=== PATIENT | male | born 1990 | race American Indian/Alaskan Native ===

== ENCOUNTER 2021-06-09 12:22 | Emergency (ER) | payer SELFPAY ==
--- NOTE | 2021-06-09 12:57 | Emergency Department Report ---
ED General Adult HPI - General Chief complaint: GI Bleed Stated complaint: ABD PAINS Time Seen by Provider: 06/09/21 12:42 Source: patient Mode of arrival: Ambulatory Limitations: No Limitations - History of Present Illness Initial comments: 31-year-old -[place] male patient presents with complaints of bleeding from rectum today. He reports, after having a bowel movement today he wiped and noticed a great deal of blood on the toilet paper. He denies any significant blood in his stools or abdominal pain. He does report mild rectal pain and itching that he rates at a 2/10 in severity. Patient states 1 week ago he was diagnosed with colitis at [facility] and prescribed antibiotics. He states since being on the antibiotics he has had some difficulty with defecation and has been straining. No prior history of hemorrhoids per patient. He denies any fever/chills/sweats, urinary symptoms, or back pain/injuries. - Related Data Previous Rx's Medication Instructions Recorded Last Taken Type Hydrocortisone [Anucort-HC SUPPOS] 25 mg RC BID PRN 7 Days #14 06/09/21 Unknown Rx supp.rect Allergies Allergy/AdvReac Type Severity Reaction Status Date / Time shellfish derived Allergy Vomiting Verified 06/09/21 12:31 ED Review of Systems ROS: Stated complaint: ABD PAINS Other details as noted in HPI Constitutional: denies: chills, diaphoresis, fever, malaise Gastrointestinal: as per HPI, constipation. denies: abdominal pain, nausea, vomiting, diarrhea, melena Genitourinary: denies: urgency, dysuria, frequency, hematuria Musculoskeletal: denies: back pain Skin: denies: rash, lesions ED Past Medical Hx - Medications Home Medications: Home Medications Medication Instructions Recorded Confirmed Last Taken Type Hydrocortisone [Anucort-HC SUPPOS] 25 mg RC BID PRN 7 Days #14 06/09/21 Unknown Rx supp.rect ED Physical Exam - General Limitations: No Limitations General appearance: alert, in no apparent distress, obese - Head Head exam: Present: atraumatic, normocephalic - Eye Eye exam: Present: normal appearance - Respiratory Respiratory exam: Present: normal lung sounds bilaterally. Absent: respiratory distress - Cardiovascular Cardiovascular Exam: Present: regular rate - GI/Abdominal GI/Abdominal exam: Present: soft. Absent: distended, tenderness, guarding, rebound, rigid - Rectal Rectal exam: Present: hemorrhoids (internal ). Absent: black stool - Neurological Exam Neurological exam: Present: alert, oriented X3 - Psychiatric Psychiatric exam: Present: normal affect - Skin Skin exam: Present: warm, dry, intact, normal color. Absent: rash ED Course Vital Signs 06/09/21 12:30 Temperature 98.2 F Pulse Rate 80 Respiratory 18 Rate Blood Pressure 128/67 O2 Sat by Pulse 97 Oximetry ED Medical Decision Making - Medical Decision Making 31-year-old -[place] male patient presents with complaints of bleeding from rectum today. He reports, after having a bowel movement today he wiped and noticed a great deal of blood on the toilet paper. He denies any significant blood in his stools or abdominal pain. He does report mild rectal pain and itching that he rates at a 2/10 in severity. Patient states 1 week ago he was diagnosed with colitis at [facility] and prescribed antibiotics. He states since being on the antibiotics he has had some difficulty with defecation and has been straining. No prior history of hemorrhoids per patient. He denies any fever/chills/sweats, urinary symptoms, or back pain/injuries. Internal hemorrhoids noted on rectal exam. Will treat symptomatically with topical meds. Recommend follow-up with GI, referral provided. He is well-appearing, his vitals are within normal limits, he is stable for discharge home. Discussed in detail signs and symptoms that should prompt immediate return to the emergency department with patient who verbalizes understanding. Critical care attestation.: If time is entered above; I have spent that time in minutes in the direct care of this critically ill patient, excluding procedure time. ED Disposition Clinical Impression: Internal hemorrhoid, bleeding Disposition: HOME / SELF CARE / HOMELESS Is pt being admited?: No Condition: Stable Instructions: Hemorrhoids Prescriptions: Hydrocortisone [Anucort-HC SUPPOS] 25 mg RC BID PRN 7 Days #14 supp.rect PRN Reason: hemorrhoid pain Referrals: [facility] [Provider Group] - 3-5 Days
[2021-06-09 14:44] VITALS: BP 144/77
== END 2021-06-09 14:41 | disposition home or self-care (01) ==
LOC: ED 12:22
DX: K64.8 Other hemorrhoids (principal); Z91.013 Allergy to seafood; Z79.899 Other long term (current) drug therapy
CPT/HCPCS: 99282

== ENCOUNTER 2022-05-13 01:10 | Emergency (ER) | payer OTHER ==
[2022-05-13] MEDS ORDERED: IPRATROPIUM 0.02% NEBU 2.5 ML IH ONE ×2 (01:38→01:40)
[2022-05-13] MEDS ORDERED: ALBUTEROL 2.5 MG/3 ML NEBU IH ONE ×2 (01:38→01:40)
[2022-05-13] MEDS ORDERED: KETOROLAC 30 MG/1 ML INJ IV ONE (01:45)
[2022-05-13] MEDS ORDERED: methylPREDNISolone Sod Succinate 125 MG/2 ML INJ IV ONE (01:45)
[2022-05-13] MEDS ORDERED: ACETAMINOPHEN 500 MG TAB PO ONE (01:45)
[2022-05-13] MEDS ORDERED: PANTOPRAZOLE 40 MG INJ IV ONE (01:45)
--- NOTE | 2022-05-13 01:47 | Emergency Department Report ---
ED General Adult HPI - General Chief complaint: Adult Asthma Stated complaint: ASTHMA Time Seen by Provider: 05/13/22 01:39 Source: patient Mode of arrival: Ambulatory Limitations: No Limitations - History of Present Illness Initial comments: The patient was evaluated in the emergency department for symptoms described in the history of present illness. He/she was evaluated in the context of the global COVID-19 pandemic, which necessitated consideration that the patient might be at risk for infection with the virus that causes COVID-19. Institution al protocols and algorithms that pertain to the evaluation of patients at risk for COVID-19 are in a state of rapid change based on information released by regulatory bodies including the CDC and federal and state organizations. These policies and algorithms were followed during the patient's care in the emergency department. Please note that these policies, procedures and recommendations changed on a rapid basis. Primary care doctor: Kwan neff The patient is a 32-year-old gentleman with a history of asthma and reactive airways disease, who denies a history of intubation, with a body mass index of 38.7, and possible obstructive sleep apnea, who is scheduled for a sleep study in May. He presents to the ER today with a complaint of 3 days of cough, chest wall pain, shortness of breath and wheezing. He is COVID-19 vaccinated. He denies loss of taste and smell. He denies vomiting and diarrhea. Chest wall pain increases with palpation and coughing. He felt improved in the emergency room after albuterol, Atrovent, steroids, and appropriate pain medications. -: Gradual, days(s) Location: chest Quality: aching Consistency: intermittent Improves with: rest Worsens with: movement, other (Palpation, cough) - Related Data Previous Rx's Medication Instructions Recorded Last Taken Type Hydrocortisone [Anucort-HC SUPPOS] 25 mg RC BID PRN 7 Days #14 06/09/21 Unknown Rx supp.rect Acetaminophen [Non-Aspirin Extra 500 mg PO Q6HR PRN #30 tablet 05/13/22 Unknown Rx Strength] Albuterol Sulfate [Albuterol 0.63% 0.63 mg IH Q4HR PRN #2 ml 05/13/22 Unknown Rx NEBS] Albuterol Sulfate [Proair 90 mcg IH Q4HR PRN #2 aer.pow.ba 05/13/22 Unknown Rx Respiclick] Ibuprofen [Motrin] 600 mg PO Q8H PRN #30 tablet 05/13/22 Unknown Rx predniSONE [Deltasone] 40 mg PO QDAY #8 tab 05/13/22 Unknown Rx Allergies Allergy/AdvReac Type Severity Reaction Status Date / Time shellfish derived Allergy Vomiting Verified 06/09/21 12:31 ED Review of Systems ROS: Stated complaint: ASTHMA Other details as noted in HPI Comment: All other systems reviewed and negative Constitutional: weakness. denies: fever ENT: congestion Respiratory: cough, shortness of breath, wheezing Cardiovascular: chest pain (Chest wall pain) ED Past Medical Hx - Past Medical History Previous Medical History?: Yes Hx Asthma: Yes Additional medical history: heart murmur; pericarditis - Surgical History Past Surgical History?: Yes - Social History Smoking Status: Never Smoker Substance Use Type: None - Medications Home Medications: Home Medications Medication Instructions Recorded Confirmed Last Taken Type Hydrocortisone [Anucort-HC SUPPOS] 25 mg RC BID PRN 7 Days #14 06/09/21 Unknown Rx supp.rect Acetaminophen [Non-Aspirin Extra 500 mg PO Q6HR PRN #30 tablet 05/13/22 Unknown Rx Strength] Albuterol Sulfate [Albuterol 0.63% 0.63 mg IH Q4HR PRN #2 ml 05/13/22 Unknown Rx NEBS] Albuterol Sulfate [Proair 90 mcg IH Q4HR PRN #2 aer.pow.ba 05/13/22 Unknown Rx Respiclick] Ibuprofen [Motrin] 600 mg PO Q8H PRN #30 tablet 05/13/22 Unknown Rx predniSONE [Deltasone] 40 mg PO QDAY #8 tab 05/13/22 Unknown Rx ED Physical Exam - General Limitations: No Limitations General appearance: alert, in no apparent distress, obese - Head Head exam: Present: atraumatic, normocephalic - Eye Eye exam: Present: normal appearance, EOMI. Absent: nystagmus - ENT ENT exam: Present: normal exam, normal orophraynx, mucous membranes moist, normal external ear exam - Neck Neck exam: Present: normal inspection, full ROM. Absent: tenderness, meni ngismus - Respiratory Respiratory exam: Present: chest wall tenderness, decreased breath sounds. Absent: wheezes, rales, rhonchi, stridor - Cardiovascular Cardiovascular Exam: Present: regular rate, normal rhythm, normal heart sounds. Absent: bradycardia, tachycardia, irregular rhythm, systolic murmur, diastolic murmur, rubs, gallop - GI/Abdominal GI/Abdominal exam: Present: soft. Absent: distended, tenderness, guarding, rebound, rigid, pulsatile mass - Rectal Rectal exam: Present: deferred - Extremities Exam Extremities exam: Present: normal inspection, full ROM, other (2+ pulses noted in the bilateral upper and lower extremities. There is no palpable cord. negative Homans sign. Muscular compartments are soft. The pelvis is stable.). Absent: pedal edema, calf tenderness - Back Exam Back exam: Present: normal inspection. Absent: tenderness, CVA tenderness (R), CVA tenderness (L), paraspinal tenderness, vertebral tenderness - Neurological Exam Neurological exam: Present: alert, oriented X3, normal gait, other (No facial droop. Tongue midline. Extraocular movements intact bilaterally. Facial sensation intact to light touch in V1, V2, V3 distribution bilaterally. 5 and a 5 strength in 4 extremities. Sensation intact to light touch in 4 extremities.). Absent: motor sensory deficit - Psychiatric Psychiatric exam: Present: normal affect, normal mood - Skin Skin exam: Present: warm, dry, intact, normal color. Absent: rash ED Course Vital Signs 05/13/22 05/13/22 05/13/22 01:12 01:53 01:55 Temperature 98.8 F 98.5 F Pulse Rate 79 112 H Pulse Rate [ Bilateral Throughout] Respiratory 22 9 L 30 H Rate Respiratory Rate [Bilateral Throughout] Blood Pressure 114/70 [Left] O2 Sat by Pulse 100 100 86 Oximetry 05/13/22 05/13/22 01:56 03:00 Temperature Pulse Rate Pulse Rate [ 81 Bilateral Throughout] Respiratory 30 H Rate Respiratory 20 Rate [Bilateral Throughout] Blood Pressure [Left] O2 Sat by Pulse 86 Oximetry - Reevaluation(s) Reevaluation #1: 05/13/22 03:08 Differential diagnosis, including but not limited to: Reactive airways disease, asthma, costochondritis, pneumonia, bronchitis, pneumothorax Assessment and plan: 32-year-old gentleman, who is not currently tachycardic, hypoxic, who denies DVT and pulmonary embolism risk factors, who is low risk by Wells criteria for pulmonary embolism, EKG not consistent with STEMI, troponin negative x1 in the context of days of symptoms, acute myocardial infarction r uled out, low risk for major adverse cardiac event as per heart score Patient has equal pulses in the upper and lower extremities, no pulsatile abdominal mass, and an unremarkable x-ray of the chest, therefore, aortic disease is very unlikely. Patient at low risk for major adverse cardiac event as per heart score. Patient has reproducible chest wall pain. He has diminished breath sounds, like ly secondary to morbid obesity, probable obstructive sleep apnea, and reactive airways disease. Currently awaiting remainder of laboratory studies 05/13/22 03:26 Patient is seen and reassessed. He is not wheezing. He is watching videos on his cellular phone. He is in no acute distress. He endorses readiness for discharge All questions answered. Return precautions are reviewed ED Medical Decision Making - Lab Data Result diagrams: 05/13/22 02:02 05/13/22 02:02 Vital Signs 05/13/22 05/13/22 05/13/22 01:12 01:53 01:55 Temperature 98.8 F 98.5 F Pulse Rate 79 112 H Pulse Rate [ Bilateral Throughout] Respiratory 22 9 L 30 H Rate Respiratory Rate [Bilateral Throughout] Blood Pressure 114/70 [Left] O2 Sat by Pulse 100 100 86 Oximetry 05/13/22 05/13/22 01:56 03:00 Temperature Pulse Rate Pulse Rate [ 81 Bilateral Throughout] Respiratory 30 H Rate Respiratory 20 Rate [Bilateral Throughout] Blood Pressure [Left] O2 Sat by Pulse 86 Oximetry Lab Results 05/13/22 05/13/22 05/13/22 Range/Units 02:02 02:02 02:02 WBC 7.6 (4.5-11.0) K/mm3 RBC 4.65 (3.65-5.03) M/mm3 Hgb 13.3 (11.8-15.2) gm/dl Hct 40.7 (35.5-45.6) % MCV 88 (84-94) fl MCH 29 (28-32) pg MCHC 33 (32-34) % RDW 13.9 (13.2-15.2) % Plt Count 256 (140-440) K/mm3 PT 13.9 (12.2-14.9) Sec. INR 0.97 (0.87-1.13) Estimated GFR > 60 ml/min BUN/Creatinine Ratio 11 % Troponin T < 0.010 (0.00-0.029) ng/mL Lab Results 05/13/22 05/13/22 05/13/22 Range/Units 02:02 02:02 02:02 WBC 7.6 (4.5-11.0) K/mm3 RBC 4.65 (3.65-5.03) M/mm3 Hgb 13.3 (11.8-15.2) gm/dl Hct 40.7 (35.5-45.6) % MCV 88 (84-94) fl MCH 29 (28-32) pg MCHC 33 (32-34) % RDW 13.9 (13.2-15.2) % Plt Count 256 (140-440) K/mm3 PT 13.9 (12.2-14.9) Sec. INR 0.97 (0.87-1.13) Sodium 140 (137-145) mmol/L Potassium 3.9 (3.6-5.0) mmol/L Chloride 103.6 (98-107) mmol/L Carbon Dioxide 27 (22-30) mmol/L Anion Gap 13 mmol/L BUN 11 (9-20) mg/dL Creatinine 1.0 (0.8-1.3) mg/dL Estimated GFR > 60 ml/min BUN/Creatinine Ratio 11 % Glucose 87 (75-100) mg/dL Calcium 9.2 (8.4-10.2) mg/dL Magnesium 1.80 (1.7-2.3) mg/dL Total Creatine Kinase 180 H (55-170) units/L Troponin T < 0.010 (0.00-0.029) ng/mL - EKG Data -: EKG Interpreted by Co EKG shows normal: sinus rhythm Rate: normal - EKG Data When compared to previous EKG there are: previous EKG unavailable 05/13/22 01:54 The EKG is interpreted at 01: 46 Sinus rhythm, with a rate of 69 bpm. Normal axis, normal P wave axis, first- degree AV block, OH interval 2 2 2 ms. Early repolarization, atrial enlargement, abnormal EKG. No STEMI, not consistent with pericarditis. There is no prior EKG available for comparison. There is poor R wave progression - Radiology Data Radiology results: pending, report reviewed, image reviewed [facility] [address] [place] [address] XRay Report Signed Patient: ASHWIN DAWKINS MR#: [id number] : 1990 Acct:[id number] Age/Sex: 32 / M ADM Date: 05/13/22 Loc: ED Attending Dr: Ordering Physician: GLO DHALIWAL MD Date of Service: 05/13/22 Procedure(s): XR chest 1V ap Accession Number(s): [id number] cc: GLO DHALIWAL MD Fluoro Time In Minutes: CHEST 1 VIEW INDICATION / CLINICAL INFORMATION: Shortness of breath with chest wall. FINDINGS: SUPPORT DEVICES: None. HEART / MEDIASTINUM: No significant abnormality. LUNGS / PLEURA: No significant pulmonary or pleural abnormality. No pneumothorax. ADDITIONAL FINDINGS: No significant additional findings. IMPRESSION: 1. No acute findings. Signer Name: Adán Knowles MD Signed: 05/13/2022 2:07 AM Workstation Name: [id number] Transcribed By: Dictated By: Adán Knowles MD Electronically Authenticated By: Adán Knowles MD Signed Date/Time: 05/13/22206 DD/ 6 TD/TT: Critical Care Time: Yes Critical care time in (mins) excluding proc time.: 35 Critical care attestation.: If time is entered above; I have spent that time in minutes in the direct care of this critically ill patient, excluding procedure time. ED Disposition Clinical Impression: Chest wall pain, Reactive airway disease Disposition: 01 HOME / SELF CARE / HOMELESS Is pt being admited?: No Does the pt Need Aspirin: No Condition: Good Instructions: Costochondritis, Sleep Apnea Additional Instructions: Please use the albuterol as directed, and steroids as directed. Take the pain medications as needed and directed Please make certain to follow-up with your outpatient sleep study at [place]. Exercise as tolerated, and participate in physical activities as tolerated. Please return to the emergency room right away with new pain, worsened pain, migration of pain, projectile vomiting, change in mental status, confusion, inability tolerate liquid feeds, new, worsened or different symptoms not present on the initial emergency room evaluation Follow-up with your outpatient physician within 7 to 10 days for repeat checkup and evaluation Referrals: [facility] [Provider Group] - 7-10 days Forms: Work/School Release Form(ED)
--- NOTE | 2022-05-13 02:12 | XRay Report ---
CHEST 1 VIEW INDICATION / CLINICAL INFORMATION: Shortness of breath with chest wall. FINDINGS: SUPPORT DEVICES: None. HEART / MEDIASTINUM: No significant abnormality. LUNGS / PLEURA: No significant pulmonary or pleural abnormality. No pneumothorax. ADDITIONAL FINDINGS: No significant additional findings. IMPRESSION: 1. No acute findings. Signer Name: Adán Knowles MD Signed: 05/13/2022 2:07 AM Workstation Name: [email or web address]
[2022-05-13 02:17] LABS: Hematocrit 40.7 % (35.5-45.6); Hemoglobin 13.3 gm/dl (11.8-15.2); Mean Corpuscular HGB Conc 33 % (32-34); Mean Corpuscular Volume 88 fl (84-94); Platelet Count 256 K/mm3 (140-440); Red Blood Count 4.65 M/mm3 (3.65-5.03); Red Cell Distribution Width 13.9 % (13.2-15.2)
[2022-05-13 02:28] LABS: INR 0.97 (0.87-1.13)
[2022-05-13 02:38] LABS: BUN/Creatinine Ratio 11; Blood Urea Nitrogen 11 mg/dL (9-20); Calcium 9.2 mg/dL (8.4-10.2); Hemolysis Index 8
[2022-05-13 03:37] VITALS: BP 125/57
--- NOTE | 2022-05-13 09:50 | Electrocardiograph Report ---
[facility] Test Date: 2022-05-13 Test Time: 01:46:54 Pat Name: ASHWIN DAWKINS Department: Room: Gender: M Gemologist: JASPAL : 1990 Requested By: GLO DHALIWAL Order Number: [id number] Reading MD: Ronnie Monsivais Measurements Intervals [place] Rate: 69 P: 37 CO: 222 QRS: 45 QRSD: 90 T: 26 QT: 387 QTc: 414 Interpretive Statements Sinus rhythm Prolonged CO interval Probable left atrial enlargement ST elev, probable normal early repol pattern No previous ECG available for comparison Electronically Signed On 05-13-2022 9:49:41 EDT by Ronnie Monsivais
== END 2022-05-13 03:37 | disposition home or self-care (01) ==
LOC: ED 01:10
DX: J45.909 Unspecified asthma, uncomplicated (principal); R07.89 Other chest pain; Z98.890 Other specified postprocedural states; Z91.013 Allergy to seafood; Z79.899 Other long term (current) drug therapy
CPT/HCPCS: 36415; 71045; 80048; 82550; 83735; 84484; 85027; 85610; 93005; 94644; 96374; 96375; 99284; C9113; J1885; J2930